=== PATIENT | female | born 1950 | race Two or more races ===

== ENCOUNTER 2024-10-28 07:59 | Emergency (ER) | payer OTHER ==
[~2024-10-28] VITALS: Ht 160 cm; Wt 62.6 kg
[2024-10-28] MEDS ORDERED: AVAPRO150 MG (08:06)
[2024-10-28] MEDS ORDERED: LEVOTHYROXINE25 MCG (08:06)
[2024-10-28] MEDS ORDERED: KETOROLAC TROMETHAMINE 60 MG VIAL IM ONE (09:00)
[2024-10-28] MEDS ORDERED: NORFLEX100MG PO (14:05)
== END 2024-10-28 14:40 | disposition home or self-care (01) ==
LOC: ER 08:01
DX: M25.562 Pain in left knee (principal); I10 Essential (primary) hypertension; E03.8 Other specified hypothyroidism; Z88.5 Allergy status to narcotic agent
CPT/HCPCS: 73700; 96372; 99284; J1885